=== PATIENT | male | born 1970 | race Caucasian/White ===

== ENCOUNTER 2018-05-25 20:22 | Emergency (ER) | payer OTHER ==
[~2018-05-25] VITALS: Ht 180.3 cm; Wt 113.4 kg
[2018-05-26] MEDS ORDERED: INTESTINEX680 M1 PO (00:47)
[2018-05-26] MEDS ORDERED: DUI500 PO (00:47)
[2018-05-26] MEDS ORDERED: MUPIROCIN15 GM TOP (00:47)
[2018-05-26] MEDS ORDERED: BETAMETHASONE D15 G3 TOP (00:47)
== END 2018-05-26 01:34 | disposition home or self-care (01) ==
LOC: ER 20:22
DX: L03.116 Cellulitis of left lower limb (principal); L20.89 Other atopic dermatitis